=== PATIENT | female | born 1995 | race Caucasian/White ===

== ENCOUNTER 2017-11-15 16:55 | Emergency (ER) | payer OTHER | END 2017-11-15 17:38 | disposition home or self-care (01) | LOC: SCSER 16:55 | DX: T14.8XXA Other injury of unspecified body region, initial encounter (principal); V43.92XA Unspecified car occupant injured in collision with other type car in traffic accident, initial encounter; W22.12XA Striking against or struck by front passenger side automobile airbag, initial encounter | CPT/HCPCS: 99283 ==